=== PATIENT | female | born 1975 | race Caucasian/White ===

== ENCOUNTER 2018-05-10 23:20 | Emergency (ER) | payer SELFPAY ==
[~2018-05-10] VITALS: Ht 157.5 cm; Wt 117.9 kg
[2018-05-10 23:39] VITALS: BP 130/98
--- NOTE | 2018-05-10 23:44 | NUR ---
ED Nurse Note: Pt states she takes 60mg Narco everyday for 3 months, and she suddenly stop it yesterday. Pt feels nausea/vomiting, anxiety panic attack feeling, can't sleep. 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
[2018-05-11] MEDS ORDERED: DICYCLOMINE HCL10 MG PO (00:11)
[2018-05-11] MEDS ORDERED: ZOFRAN4 MG ORAL (00:11)
[2018-05-11 00:15] VITALS: BP 119/82
--- NOTE | 2018-05-11 00:17 | NUR ---
ER DISCHARGE NOTE: Patient is cleared to be discharged per ERMD, pt is aox4, on room air, with stable vital signs. pt was given dc and prescription instructions, pt was able to verbalize understanding, pt id band removed without complications. pt is able to ambulate with steady gait. pt took all belongings.
--- NOTE | 2018-05-16 06:18 | Emergency Room Report ---
History of Present Illness General Chief Complaint: General Complaint Source: Patient Present Illness HPI Patient is a 42-year-old female presented after increased generalized body aches and anxiety. Patient had recent been taken off some of her pain medications. Patient had prior history of anxiety and had been taking benzodiazepines. Patient denies any vomiting. Patient had stopped her medications approximately 1 day prior to arrival. She had previously been taking medications chronically. She denies any diarrhea or vomiting. Allergies: Coded Allergies: No Known Allergies (Unverified , 05/10/18) Patient History Past Medical History: see triage record Last Menstrual Period: Apr 23 2018 Now: No Reviewed Nursing Documentation: PMH: Agreed; PSxH: Agreed Nursing Documentation-PMH Hx Diabetes: Yes - PreDM Review of Systems All Other Systems: negative except mentioned in HPI Physical Exam General Appearance: well appearing, no apparent distress, alert, GCS 15, obese Head: normocephalic, atraumatic ENT: hearing grossly normal, normal voice Neck: full range of motion, supple Respiratory: lungs clear, no respiratory distress, speaking full sentences Cardiovascular #1: normal inspection, no edema Gastrointestinal: normal inspection, soft Musculoskeletal: normal inspection Neurologic: normal inspection, alert, oriented x3, responsive, hotel custodian III-XII nml as tested, normal gait Psychiatric: mood/affect normal, anxious Skin: no rash Medical Decision Making Diagnostic Impression: Primary Impression: Opiate withdrawal ER Course Patient presented for increased anxiousness. Differential diagnosis include was not limited to opiate withdrawal, anxiety, gastroenteritis among others. Patient has a benign exam and does not appear to require any further imaging or laboratory testing at this time. Patient does not appear to have any evidence of acute disease. Patient was given medications for nausea. Patient stated that she wanted to leave subsequently. Patient appears to be stable.Given prescriptions for medications for symptomatic treatment. Status: improved Disposition: HOME, SELF-CARE Condition: Stable Scripts Dicyclomine Hcl* (DICYCLOMINE HCL*) 10 Mg Capsule 10 MG PO QID, #20 CAP Prov: George Rowan MD 05/11/18 Ondansetron (Zofran) 4 Mg Tablet 4 MG ORAL Q6H PRN for Nausea & Vomiting, #10 TAB 0 Refills Prov: George Rowan MD 05/11/18 Referrals: NOT CHOSEN IPA/MD,REFERRING (PCP) Patient Instructions: Opioid Withdrawal George Rowan MD May 16, 2018 06:18
== END 2018-05-11 00:17 | disposition home or self-care (01) ==
LOC: EDBD 23:50 → EMR 23:50
DX: F11.23 Opioid dependence with withdrawal (principal); F41.9 Anxiety disorder, unspecified; R73.03 Prediabetes; T40.2X5A Adverse effect of other opioids, initial encounter; Y92.9 Unspecified place or not applicable
CPT/HCPCS: 99282

== ENCOUNTER 2018-06-01 09:06 | Day surgery (SDC) | payer BC ==
[~2018-06-01] VITALS: Ht 157.5 cm; Wt 91.6 kg
[2018-06-01] VITALS (10 sets, daily range): BP systolic 110–127; BP diastolic 62–74
--- NOTE | 2018-06-01 07:26 | Anethesia Preoperative Eval ---
Anesthesia Pre-op PMH/ROS General Date of Evaluation: Jun 01, 2018 Time of Evaluation: 07:23 Anesthesiologist: willa ASA Score: ASA 3 Mallampati Score Class I : Soft palate, uvula, fauces, pillars visible Class II: Soft palate, uvula, fauces visible Class III: Soft palate, base of uvula visible Class IV: Only hard plate visible Mallampati Classification: Class II Surgeon: chris Diagnosis: colon screening Surgical Procedure: colonoscopy Anesthesia History: none Social History: smoking - former smoker Family History: no anesthesia problems Allergies: Coded Allergies: No Known Allergies (Unverified , 06/01/18) Medications: see eMAR Patient NPO?: Yes Past Medical History Cardiovascular: Reports: other - hypercholesterolemia Pulmonary: Reports: MICHELLE, other - cpap, Gastrointestinal/Genitourinary: Reports: other - lmp 05/23/2018, uti Neurologic/Psychiatric: Reports: depression/anxiety Endocrine: Reports: DM Other: obesity PSxH Narrative: rhinoplasty, tonsillectomy, Anesthesia Pre-op Phys. Exam Physician Exam Constitutional: NAD Neurologic: CN 2-12 intact Cardiovascular: RRR Respiratory: CTA Gastrointestinal: S/NT/ND Airway Exam Mallampati Score: Class II MO: limited Neck: short TMD: 2fb ROM: limited Anesthesia Pre-op A/P Labs Labs Test 06/01/18 09:15 Urine HCG, Qualitative Negative (NEGATIVE) Risk Assessment & Plan Assessment: asa3 Plan: mac Status Change Before Surgery: No Pre-Antibiotics Drug: Stephanie Hanson MD Jun 01, 2018 07:25
[~2018-06-01 09:06] MED LIST: Atropine Inj 1mg/10ml Syr IV PRN; CRESTOR20 MG ORAL; DICYCLOMINE HCL10 MG PO; DiphenhydrAMINE 50mg/ml Inj IVP PRN; KLONOPIN0.5 MG ORAL; LATUDA40 MG PO; LR 1000ml 1,000 ML IVLG SCH; Midazolam 2mg/2ml Inj IVP PRN; PROZAC40 MG ORAL; ZOFRAN4 MG ORAL; fentaNYL 100 mcg/2 mL IV PRN
[2018-06-01] MEDS ORDERED: LR 1000ml ONE (10:30)
[2018-06-01] MEDS ORDERED: Propofol 200mg/20ml IV ONE (10:30)
[2018-06-01] MEDS ORDERED: Lidocaine 1% MPF 10mg/ml 5ml ONE (10:30)
--- NOTE | 2018-06-01 10:31 | Short Stay Surgery H&P ---
History of Present Illness History of Present Illness Chief Complaint abdominal pains/screening colon HPI Alma Mcqueen is a 42 year old female who was admitted on for Screening Colon/abdominal pains Patient History Allergies: Coded Allergies: No Known Allergies (Unverified , 06/01/18) PAST MEDICAL HISTORY: (1) Hyperlipidemia Medication History Scheduled Clonazepam* (Klonopin*), 0.5 MG ORAL BID, (Reported) Fluoxetine Hcl* (Prozac*), 80 MG ORAL DAILY, (Reported) Lurasidone Hcl (Latuda), 40 MG PO DAILY, (Reported) Rosuvastatin Calcium* (Crestor*), 20 MG ORAL DAILY, (Reported) Discontinued Medications Dicyclomine Hcl* (Dicyclomine Hcl*), 10 MG PO QID Discontinued Reason: Pt stopped taking med Ondansetron (Zofran), 4 MG ORAL Q6H PRN for Nausea & Vomiting Discontinued Reason: Pt stopped taking med Review of Systems Cardiovascular: Reports: no symptoms Respiratory: Reports: no symptoms Skeletal: Reports: no symptoms Genitourinary: Reports: no symptoms Neurologic: Reports: no symptoms Endocrine: Reports: no symptoms Hematologic: Reports: no symptoms Physical Exam Vital Signs Last Vital Signs Date Time Temp Pulse Resp B/P (MAP) Pulse Ox O2 Delivery O2 Flow Rate FiO2 06/01/18 09:42 98.2 93 18 127/74 98 Room Air Labs Laboratory Tests Test 06/01/18 09:15 Urine HCG, Qualitative Negative (NEGATIVE) Skin: normal HENT: normal Heart: normal Lungs: normal Abdomen: normal Extremities: normal Genitourinary: normal Plan Plan of Care Total colonoscopy Preop Interventions None. Summary of Findings See the reports Attestation Are the patient's medical conditions optimized for surgery? Attestation Response: yes Inderjit Nash MD Jun 01, 2018 10:31
--- NOTE | 2018-06-01 10:32 | Pre-Procedure Note/Attestation ---
Pre-Procedure Note/Attestation Complete Prior to Procedure Planned Procedure: left Procedure Narrative: Examination of the colon via endoscopy Indications for Procedure Pre-Operative Diagnosis: R/O Colitis/polyps Attestation I attest that I discussed the nature of the procedure; its benefits; risks and complications; and alternatives (and the risks and benefits of such alternatives ), prior to the procedure, with the patient (or the patient's legal retail service representative). I attest that, if there was a reasonable possibility of needing a blood transfusion, the patient (or the patient's legal retail service representative) was given the [facility] standardized written summary, pursuant to the Jens Ramya Blood Safety Act ([place] Health and Safety Code # 1645, as amended). I attest that I re-evaluated the patient just prior to the surgery and that there has been no change in the patient's H&P, except as documented below: Inderjit Nash MD Jun 01, 2018 10:32
--- NOTE | 2018-06-01 11:03 | Endoscopy Procedure Note ---
Endoscopy Procedure Note General Indication for Procedure: Abdominal pains/screening colon Procedures Performed: colonoscopy - Minimal internal hemorrhoids, otherwise normal total colonoscopy. Specimen: none Pt Tolerated Procedure Well: Yes Estimated Blood Loss: none Anesthesia Anesthesiologist: Dr. Phillips Anesthesia: moderate sedation Medications Medication Given: see anesthesia record Inserted Devices Implant(s) used?: No Quality Quality of Bowel Preparation: Good Did scope reach the cecum?: Yes Was there any complications?: No GI Core Measures 50 yrs or older w/o bx or poly: No 10yrs. F/U not recommended: Yes 10 yrs. F/U needed: Yes 18 years or older w/prev. colo: No <3yrs. since last colonoscopy: No Med reason:<3 yrs.: System Reason:<3 yrs.: Last colonoscopy >= to 3yrs: Yes Inderjit Nash MD Jun 01, 2018 11:03
--- NOTE | 2018-06-01 11:04 | Discharge Instructions ---
Discharge Instructions Discharge Instructions Follow up with: Visit the doctor in office after 2 weeks For Congestive Heart Failure Reminder Report to your physician any weight gain of 5 pounds or more in one week. Inderjit Nash MD Jun 01, 2018 11:04
--- NOTE | 2018-06-01 13:12 | Immediate Post-Op Evaluation ---
Immediate Post-Op Evalulation Immediate Post-Op Evalulation Procedure: colonoscopy Date of Evaluation: Jun 01, 2018 Time of Evaluation: 11:24 IV Fluids: 350ml lr Blood Products: none Estimated Blood Loss: negligible Blood Pressure Systolic: 114 Blood Pressure Diastolic: 62 Pulse Rate: 86 Respiratory Rate: 18 O2 Sat by Pulse Oximetry: 100 Temperature (Fahrenheit): 98.1 Pain Score (1-10): 0 Nausea: No Vomiting: No Complications none Patient Status: awake, reacts, patent Hydration Status: adequate Drug: Stephanie Hanson MD Jun 01, 2018 13:12
--- NOTE | 2018-06-01 13:14 | 48 Hour Post Anesthesia Eval ---
Post Anesthesia Evaluation Procedure: colonoscopy Date of Evaluation: Jun 01, 2018 Time of Evaluation: 11:26 Blood Pressure Systolic: 118 0: 70 Pulse Rate: 88 Respiratory Rate: 18 Temperature (Fahrenheit): 98.1 O2 Sat by Pulse Oximetry: 100 Airway: patent Nausea: No Vomiting: No Pain Intensity: 0 Hydration Status: adequate Cardiopulmonary Status: stable Mental Status/LOC: patient returned to baseline Post-Anesthesia Complications: none Follow-up care needed: N/A Stephanie Phillips MD Jun 01, 2018 13:14
--- NOTE | 2018-06-01 16:45 | Procedure Note ---
DATE OF PROCEDURE: 06/01/2018 SURGEON: Inderjit Nash M.D. PROCEDURE: Total colonoscopy. PREOPERATIVE DIAGNOSES: 1. Abdominal pain. 2. Screening colonoscopy. POSTOPERATIVE DIAGNOSIS: Minimal internal hemorrhoid hemorrhoids, otherwise completely normal total colonoscopy up to the base of the cecum as examined. MEDICATION USED: Per Dr. Horne, anesthesiologist. INSTRUMENT: GIF Olympus video colonoscope. DESCRIPTION OF PROCEDURE: The patient, after arriving endoscopy unit, was told about risks and benefits of the procedure which she accepted and signed informed consent. She was then put in the left lateral decubitus position. A careful examination of the rectoanal area revealed evidence of minimal hemorrhoidal tags and internal hemorrhoids, which were not friable and nonsignificant. The rest of the rectum was completely normal. At this time, the scope was passed through rather redundant left colon reaching towards the splenic flexure, transverse colon, hepatic flexure, and finally was guided into the right colon all the way to the base of the cecum. All these areas remained to be completely normal with normal findings and no evidence of pathology such as polyps, tumors, bleeding sites, etc. was found. At this point, 6 minutes, the scope was gradually pulled out and no other pathology was found. The colon cleanup was adequate and the patient tolerated the procedure well, left the endoscopy room in a good condition. Inderjit Nash M.D. DR: Emilee JOB#: [id number] CC:
== END 2018-06-01 12:30 | disposition home or self-care (01) ==
LOC: GAS 09:06
DX: Z12.11 Encounter for screening for malignant neoplasm of colon (principal); R10.9 Unspecified abdominal pain; K64.8 Other hemorrhoids; E78.5 Hyperlipidemia, unspecified; Z87.891 Personal history of nicotine dependence; E11.9 Type 2 diabetes mellitus without complications; G47.33 Obstructive sleep apnea (adult) (pediatric); E78.00 Pure hypercholesterolemia, unspecified; F32.9 Major depressive disorder, single episode, unspecified; F41.9 Anxiety disorder, unspecified; E66.9 Obesity, unspecified; Z68.36 Body mass index [BMI] 36.0-36.9, adult
CPT/HCPCS: 45378; 81025; 82962; J2704; 94003; 94150